=== PATIENT | female | born 1990 | race Caucasian/White ===

== ENCOUNTER 2017-01-06 17:05 | Emergency (ER) | payer BC, OTHER ==
[~2017-01-06 17:05] MED LIST: NORE1TAB26 PO; PREN1CAP4 PO
--- NOTE | 2017-01-06 18:16 | PD ---
HPI Chief Complaint pelvic pain Date Seen: Jan 06, 2017 Travel History International Travel<30 Days: No Contact w/Intl Traveler<30Days: No History of Present Illness HPI 26 yo @ 16w2d. care with Dr. Oconnell, uncomplicated . Patient c/o sharp pains on the sides of the uterus that is worse with standing and walking. She took Tylenol earlier today. She denies abdominal pain. She has a hx of IBS with some loose stools yesterday and constipation today. Denies urinary symptoms. No VB, discharge, LOF. History Past Medical History Narrative Medical Migraines Obstetric History Obstetric History G1 Past Surgical History Surgical History: No Previous Surgery Family History Family History: Negative Social History Alcohol Use: No Tobacco Use: No Substance Abuse: No Allergies-Medications (Allergen,Severity, Reaction): Coded Allergies: Penicillin (Verified Allergy, Unknown, 05/05/16) Home Meds Active Scripts Norethindrone-Ethinyl Estradiol-Fe (Lomedia 24 Fe 07/15)1-20 Mg-Mcg Tab1 Tab PO DAILY #1 PACK Ref 11 Prov:Alma Rosa Wolfe [facility] 06/01/16 Without A W/ Fe Fumar (Prenate Enhance 28-0.6-0.4-400 mg)1 Cap Cap1 Cap PO DAILY #60 BOTTLE Ref 4 Prov:Althea Cardoso CNM [facility] 05/05/16 Review of Systems General / Constitutional: No: Fever, Chills HENT: No: Headaches (none currently), Lightheadedness Cardiovascular: No: Chest Pain or Discomfort, Palpitations Respiratory: No: Cough, Short of Breath Gastrointestinal: Constipation, No: Nausea, Vomiting, Diarrhea, Abdominal Pain (per hpi) Genitourinary: Pelvic Pain (per hpi), No: Urgency, Frequency, Dysuria, Discharge, Vaginal Bleeding Musculoskeletal: No: Weakness, Cramping, Edema Skin: No Rash, No Itching, No Lesions Neurologic: No: Focal Abnormalities, Coordination Problem Physical Exam Narrative GENERAL: Well-nourished, well-developed patient. NAD SKIN: Warm and dry. HEAD: Normocephalic and atraumatic. EYES: No scleral icterus. No injection or drainage. ENT: No nasal drainage noted. Mucous membranes pink. Airway patent. NECK: trachea midline. No JVD. CARDIOVASCULAR: Regular rate RESPIRATORY: No accessory muscle use. ABDOMEN/GI: Abdomen soft, non-tender, no rebound, no guarding Gravid NT pain reproduced with moving uterus c/w round ligament pain FHT's: 160s EXTREMITIES: No cyanosis or edema. BACK: Nontender without obvious deformity. NEUROLOGICAL: Awake and alert. Motor and sensory grossly within normal limits. Normal speech. Normal gait. Data Data Vital Signs Reviewed: Yes Orders Vital Signs (Adult) .ON ADMISSION (01/06/17 17:29) ^ Labor Status (01/06/17 17:29) Urinalysis - C+S If Indicated (01/06/17 17:29) ^ Hydration (01/06/17 17:29) Labs UA dip: NEG MDM Narrative Course / MDM 16 weeks round ligament pain +FHR hx IBS with alternating loose stools and constipation ua neg Plan D/c home interventions for round ligament pain reviewed info on support belt given tylenol prn Diagnosis Diagnosis: Primary Impression: Pain of round ligament affecting , antepartum Additional Impression: 16 weeks gestation of Disposition: DISCHARGE HOME Condition: Good Ranjana Hines MD Jan 06, 2017 18:16
== END 2017-01-06 18:18 | disposition home or self-care (01) ==
LOC: HOBED 17:05
DX: O26.892 Other specified pregnancy related conditions, second trimester (principal); K58.9 Irritable bowel syndrome, unspecified; Z3A.16 16 weeks gestation of pregnancy; Z88.0 Allergy status to penicillin
CPT/HCPCS: 99282

== ENCOUNTER 2017-07-04 20:17 | Inpatient (IN) | payer OTHER ==
[~2017-07-04] VITALS: Ht 160 cm; Wt 69.9 kg
[2017-07-04] VITALS (21 sets, daily range): PULSE 71–103
[2017-07-04] MEDS: LACTATED RINGER'S 1000 ML IV SCH (21:00)
--- NOTE | 2017-07-04 21:54 | HHI.HP ---
HPI Chief Complaint post dates Date Seen: Jul 04, 2017 Time Seen: 21:49 Travel History International Travel<30 Days: No Contact w/Intl Traveler<30Days: No Known Affected Area: No History of Present Illness HPI 26 yo mwf G0 at 41 and 6/7 weeks by early dating admitted for cervidil and arom in the am. She strongly desires to avoid pitocin and epidural. She has been frightened of labor and desires to do as much naturally as possible. PNC with HOGA and no issues throughout. GFM. No N, V, GERMAIN or blurred vision. GFM and some contractions. No leaking or bleeding. Weeks Gestation: 42 Para: 0 : 1 Last Menstrual Period: Jul 04, 2017 History Past Medical History Medical History: Denies Significant Hx Past Surgical History Surgical History: No Previous Surgery Family History Family History: Negative Social History Alcohol Use: No Tobacco Use: No Substance Abuse: No Allergies-Medications (Allergen,Severity, Reaction): Coded Allergies: penicillin G (Verified Allergy, Severe, Nausea/Vomiting, 07/04/17) Home Meds Active Scripts Without A W/ Fe Fumar (Prenate Enhance 28-0.6-0.4-400 mg) 1 Cap Cap, 1 CAP PO DAILY, #60 BOTTLE 4 Refills Prov:Althea Cardoso 05/05/16 Discontinued Scripts Norethindrone-Ethinyl Estradiol-Fe (Lomedia 24 Fe 07/15) 1-20 Mg-Mcg Tab, 1 TAB PO DAILY for Control, #1 PACK 11 Refills Prov:Alma Rosa WolfeP 06/01/16 Physical Exam Narrative GENERAL: Well-nourished, well-developed patient. SKIN: Warm and dry. HEAD: Normocephalic and atraumatic. EYES: No scleral icterus. No injection or drainage. ENT: No nasal drainage noted. Mucous membranes pink. Airway patent. NECK: Supple, trachea midline. No JVD. CARDIOVASCULAR: Regular rate and rhythm without murmurs, gallops, or rubs. RESPIRATORY: Breath sounds equal bilaterally. No accessory muscle use. BREASTS: Bilateral exam showed no masses , no retractions, no nipple discharge. ABDOMEN/GI: Abdomen soft, non-tender, bowel sounds present, no rebound, no guarding 41 cm Vertex EFW 7 and 1/2 pelvis unproven but clinically adequate BPP in office 01/31 2 cm /50% /very posterior and deviated to the left strip reactive with no decels EXTREMITIES: No cyanosis or edema. BACK: Nontender without obvious deformity. No CVA tenderness. NEUROLOGICAL: Awake and alert. Motor and sensory grossly within normal limits. Five out of 5 muscle strength in all muscle groups. Normal speech. Caprini VTE Risk Assessment Caprini VTE Risk Assessment: No/Low Risk (score <= 1) Caprini Risk Assessment Model Point Value = 1 Point Value = 2 Point Value = 3 Point Value = 5 Age 41-60 Minor surgery BMI > 25 kg/m2 Swollen legs Varicose veins or History of unexplained or recurrent spontaneous Oral contraceptives or hormone replacement Sepsis (< 1 month) Serious lung disease, including pneumonia (< 1 month) Abnormal pulmonary function Acute myocardial infarction Congestive heart failure (< 1 month) History of inflammatory bowel disease Medical patient at bed rest Age 61-74 Arthroscopic surgery Major open surgery (> 45 min) Laparoscopic surgery (> 45 min) Malignancy Confined to bed (> 72 hours) Immobilizing plaster cast Central venous access Age >= 75 History of VTE Family history of VTE Factor V Leiden Prothrombin [id number] Lupus anticoagulant Anticardiolipin antibodies Elevated serum homocysteine Heparin-induced thrombocytopenia Other congenital or acquired thrombophilia Stroke (< 1 month) Elective arthroplasty Hip, pelvis, or leg fracture Acute spinal cord injury (< 1 month) Prophylaxis Regimen Total Risk Factor Score Risk Level Prophylaxis Regimen 0-1 Low Early ambulation 2 Moderate Order ONE of the following: *Sequential Compression Device (SCD) *Heparin 5000 units SQ BID 3-4 Higher Order ONE of the following medications: *Heparin 5000 units SQ TID *Enoxaparin/Lovenox 40 mg SQ daily (WT < 150 kg, CrCl > 30 mL/min) *Enoxaparin/Lovenox 30 mg SQ daily (WT < 150 kg, CrCl > 10-29 mL/min) *Enoxaparin/Lovenox 30 mg SQ BID (WT < 150 kg, CrCl > 30 mL/min) AND/OR *Sequential Compression Device (SCD) 5 or more Highest Order ONE of the following medications: *Heparin 5000 units SQ TID (Preferred with Epidurals) *Enoxaparin/Lovenox 40 mg SQ daily (WT < 150 kg, CrCl > 30 mL/min) *Enoxaparin/Lovenox 30 mg SQ daily (WT < 150 kg, CrCl > 10-29 mL/min) *Enoxaparin/Lovenox 30 mg SQ BID (WT < 150 kg, CrCl > 30 mL/min) AND *Sequential Compression Device (SCD) Data Data Orders Orders Admit To Inpatient (07/04/17 ) Diet Regular Basic (07/05/17 Breakfast) Activity Oob Ad Leydi (07/04/17 21:47) ^ Labor Induction (07/04/17 21:47) ^ Saline Lock (07/04/17 21:47) ^ Vaginal Insert (07/04/17 21:47) ^ Vaginal Lavage (07/04/17 21:47) Heart (07/04/17 21:47) Sodium Chloride 0.9% Flush (Ns Flush) (07/05/17 09:00) Sodium Chloride 0.9% Flush (Ns Flush) (07/04/17 22:00) Dinoprostone Vag Insert (Cervidil Vag In (07/04/17 22:00) Inpatient Certification (07/04/17 ) Assessment/Plan Assessment and Plan 42 weeks with reasonable barrios score and reassuring testing cervidil tonight and arom in the morning anticipate Umm Fraga MD Jul 04, 2017 21:54
[2017-07-04] MEDS ORDERED: DINOPROSTONE 10 MG VAG INSERT VAGINAL ONE (22:00)
[2017-07-04] MEDS ORDERED: SODIUM CHLORIDE 0.9% FLUSH 10 ML FLUSH IV FLUSH PRN (22:00)
[2017-07-04 22:29] LABS: AUTOMATED NEUTROPHIL # 9.1 TH/MM3 (1.8-7.7); BASOPHIL % 0.3 % (0.0-2.0); EOSINOPHIL % 0.3 % (0.0-4.0); HEMATOCRIT 34.5 % (35.0-46.0); HEMOGLOBIN 12.3 GM/DL (11.6-15.3); LYMPH % 16.5 % (9.0-44.0); LYMPHOCYTE # 1.9 TH/MM3 (1.0-4.8); MEAN CELL VOLUME 94.6 FL (80.0-100.0); MEAN CORPUSCULAR HEMOGLOBIN 33.8 PG (27.0-34.0); MEAN CORPUSCULAR HGB CONC 35.7 % (32.0-36.0); MEAN PLATELET VOLUME 7.6 FL (7.0-11.0); MONO % 5.9 % (0.0-8.0); MONOCYTE # 0.7 TH/MM3 (0-0.9); PLATELET COUNT 300 TH/MM3 (150-450); RED BLOOD COUNT 3.65 MIL/MM3 (4.00-5.30); RED CELL DISTRIBUTION WIDTH 14.5 % (11.6-17.2); WHITE BLOOD COUNT 11.8 TH/MM3 (4.0-11.0)
[2017-07-04] MEDS ORDERED: LIDOCAINE HCL 1% 50 ML VIAL INFIL PRN (22:30)
[2017-07-04] MEDS ORDERED: ONDANSETRON HCL 4 MG/2 ML VIAL IV PUSH PRN (22:30)
[2017-07-04] MEDS ORDERED: OXYTOCIN 30 UNITS 500ML PREMIX IV ONE (22:30)
[2017-07-04] MEDS ORDERED: NS 1000 ML IV PRN (22:30)
[2017-07-04] MEDS ORDERED: MINERAL OIL 10 ML VIAL TOPICAL PRN (22:30)
[2017-07-04] MEDS ORDERED: LIDOCAINE HCL 1% 50 ML VIAL I-DERMAL PRN (22:30)
[2017-07-04] MEDS ORDERED: LACTATED RINGER'S 1000 ML BOLUS IV PRN (22:30)
[2017-07-04] MEDS ORDERED: CITRIC ACID-SODIUM CITRATE LIQ 30 ML UDC PO SCH (22:30)
[2017-07-04] MEDS ORDERED: NS 500 ML BOLUS IV PRN (22:30)
[2017-07-04 22:32] LABS: BILIRUBIN, URINE NEG (NEG); BLOOD, URINE SMALL (NEG); GLUCOSE,URINE NEG (NEG); KETONE, URINE 10 mg/dL (NEG); NITRITE,URINE NEG (NEG); SQUAMOUS EPITHELIAL CELL URINE 1 /hpf (0-5); URINE COLOR LIGHT-YELLOW (YELLW/STRAW); URINE LEUKOCYTE ESTERASE NEG (NEG)
[2017-07-04] MEDS ORDERED: ACETAMINOPHEN 325 MG TAB PO PRN (23:30)
[2017-07-05] VITALS (110 sets, daily range): BP systolic 110–140; BP diastolic 66–77; PULSE 65–119; RESP 16–18; TEMP 97.8–98.6
[2017-07-05] MEDS: LACTATED RINGER'S 1000 ML IV SCH (05:42)
[2017-07-05] MEDS ORDERED: SODIUM CHLORIDE 0.9% FLUSH 10 ML FLUSH IV FLUSH SCH ×2 (09:00→21:00)
[2017-07-05] MEDS ORDERED: OXYTOCIN 30 UNITS-500ML PREMIX 500 ML ONE (14:31)
[2017-07-05] MEDS ORDERED: LIDOCAINE HCL 1% 20 ML VIAL ONE (14:32)
[2017-07-05] MEDS ORDERED: MEASLES, MUMPS, RUBELLA VACCINE 0.5 ML VIAL SQ ONE (16:00)
[2017-07-05] MEDS ORDERED: DIPHTH/TETANUS/ACEL PERTUSSIS (BOOSTER) 0.5 ML VIAL/PFS IM ONE (16:00)
[2017-07-05] MEDS ORDERED: DOCUSATE SODIUM 50 MG/SENNA 8.6 MG TAB PO PRN (16:30)
[2017-07-05] MEDS ORDERED: OXYTOCIN 30 UNITS-500ML PREMIX 500 ML IV SCH (16:30)
[2017-07-05] MEDS ORDERED: SODIUM CHLORIDE 0.9% FLUSH 10 ML FLUSH IV FLUSH PRN (16:30)
[2017-07-05] MEDS ORDERED: ALUMINUM/MAGNESIUM/SIMETH 30 ML CUP PO PRN (16:30)
[2017-07-05] MEDS ORDERED: BENZOCAINE 20% TOPICAL SPRAY 60 ML CAN TOPICAL PRN (16:30)
[2017-07-05] MEDS ORDERED: oxyCODONE/ACETAMINOPHEN 5 MG/325 MG TAB PO PRN (16:30)
[2017-07-05] MEDS ORDERED: ZOLPIDEM TARTRATE 5 MG TAB PO PRN (16:30)
[2017-07-05] MEDS ORDERED: ACETAMINOPHEN 325 MG TAB PO PRN (16:30)
[2017-07-05] MEDS ORDERED: WITCH HAZEL 50%/GLYCERIN 12.5% 40 PAD JAR TOPICAL PRN (16:30)
[2017-07-05] MEDS ORDERED: ONDANSETRON ODT 4 MG TAB PO PRN (16:30)
[2017-07-05] MEDS: IBUPROFEN 800 MG TAB PO PRN (16:43)
[2017-07-05] MEDS: oxyCODONE/ACETAMINOPHEN 5 MG/325 MG TAB PO PRN (16:43)
[2017-07-06] MEDS: IBUPROFEN 800 MG TAB PO PRN ×3 (00:47→17:42)
[2017-07-06] MEDS: oxyCODONE/ACETAMINOPHEN 5 MG/325 MG TAB PO PRN ×3 (00:47→17:42)
--- NOTE | 2017-07-06 07:29 | PD.OB.DELI ---
Weeks gestation: 42 Gest age assessed date: Jul 05, 2017 Gest age assessed time: 08:00 Pt started active labor?: Yes Active labor start date: Jul 05, 2017 Active labor start time: 08:00 Medical induction start date: Jul 05, 2017 Medical induction start time: 08:00 Artificial rupture of membrane: Yes Artificial ROM date: Jul 05, 2017 Artifical ROM time: 08:00 Anesthesia: Epidural Episiotomy: None Vaginal Delivery: Normal, Vacuum Presentation: Occiput anterior Nuchal Cord: x1 Delayed cord clamping (45 sec): Yes Infant: Female Delivery date: Jul 05, 2017 Delivery time: 16:00 One Minute : 9 Five Minute : 9 Weight: 3670 Placenta: Spontaneous delivery Laceration: 2 deg Repair: Chromic running Estimated blood loss: average 300 Umm Everett MD Jul 06, 2017 07:29
--- NOTE | 2017-07-06 07:31 | HHI.DCPOC ---
Discharge Care Plan Report Symptoms to Your Doctor -Temperature above 100.5 degrees -Redness, of incision or excessive or foul smelling drainage -Unusual pain or calf pain -Increased vaginal bleeding -Painful or difficulty urinating -Feelings of extreme sadness or anxiety after 2 weeks Goals to Promote Your Health * To prevent worsening of your condition and complications * To maintain your health at the optimal level Directions to Meet Your Goals Take your medications as prescribed Follow your dietary instruction Follow activity as directed Ensure plenty of rest for recovery Drink fluids for hydration Keep your appointments as scheduled Take your immunizations and boosters as scheduled If your symptoms worsen call your PCP, if no PCP go to Urgent Care Center or Emergency Room Smoking is Dangerous to Your Health. Avoid second hand smoke Call the 24-hour crisis hotline for domestic abuse at Umm Everett MD Jul 06, 2017 07:31
[2017-07-06 08:05] VITALS: BP 114/60; PULSE 77; RESP 16; TEMP 98
--- NOTE | 2017-07-06 08:21 | HHI.OB ---
Subjective Post Day: 1 Remarks doing well, VB decreasing, small clots but = cycles. no pain, no dizziness, voiding, Objective Vitals/I&O Vital Signs Date Time Temp Pulse Resp B/P (MAP) Pulse Ox O2 Delivery O2 Flow Rate FiO2 07/05/17 19:05 98.6 103 18 110/73 (85) 07/05/17 16:45 109 16 140/77 (98) 07/05/17 16:38 16 07/05/17 16:30 102 125/77 (93) 07/05/17 16:19 16 07/05/17 16:15 98 128/66 (86) 07/05/17 16:04 103 132/68 (89) 07/05/17 16:03 18 07/05/17 14:37 97.8 18 07/05/17 12:22 97.8 07/05/17 10:30 16 07/05/17 10:25 73 07/05/17 10:20 86 07/05/17 10:15 74 07/05/17 10:10 76 07/05/17 10:05 72 07/05/17 10:00 81 07/05/17 09:50 71 07/05/17 09:45 75 07/05/17 09:40 70 07/05/17 09:35 79 07/05/17 09:30 73 16 07/05/17 09:25 81 07/05/17 09:15 84 07/05/17 09:05 93 07/05/17 09:00 86 07/05/17 08:57 98.2 07/05/17 08:55 88 07/05/17 08:55 88 110/73 (85) 07/05/17 08:50 105 07/05/17 08:40 78 07/05/17 08:35 82 07/05/17 08:30 119 Objective Remarks GENERAL: Well-nourished, well-developed patient. CARDIOVASCULAR: Regular rate and rhythm without murmurs, gallops, or rubs. RESPIRATORY: Breath sounds equal bilaterally. No accessory muscle use. ABDOMEN/GI: Abdomen soft, non-tender. Fundus: Firm, non-tender at umbilicus. GENITOURINARY: Light to moderate bleeding. EXTREMITIES: No cyanosis or edema, non-tender, without signs of DVT. Medications and IVs Current Medications Medications (Trade) Dose Ordered Sig/Artur Route Start Time Stop Time Status Last Admin (NS Flush) 2 ml BID IV FLUSH 07/05/17 21:00 (NS Flush) 2 ml UNSCH PRN IV FLUSH 07/05/17 16:30 (Tylenol) 650 mg Q4H PRN PO 07/05/17 16:30 (Motrin) 800 mg Q8H PRN PO 07/05/17 16:30 07/06/17 00:47 (Percocet 5-325 Mg) 1 tab Q4H PRN PO 07/05/17 16:30 07/06/17 00:47 (Percocet 5-325 Mg) 2 tab Q4H PRN PO 07/05/17 16:30 (Americaine 20% Top Spr) 1 spray Q4H PRN TOPICAL 07/05/17 16:30 (Tucks Pads) 1 applic QID PRN TOPICAL 07/05/17 16:30 (Shilpa-Colace) 2 tab Q12H PRN PO 07/05/17 16:30 (Ambien) 5 mg HS PRN PO 07/05/17 16:30 (Mag-Al Plus Susp Liq) 15 ml Q8H PRN PO 07/05/17 16:30 (Zofran Odt) 4 mg Q6H PRN PO 07/05/17 16:30 Assessment/Plan Assessment and Plan 26 yo s/p Vacuum at 42 w 1. PPD #1: doing well, anticipate d/c home either later today or tomorrow, discussed expectations and precautions. 2. Asthma: controlled w/o meds. Terrence Mendoza MD Jul 06, 2017 08:21
== END 2017-07-06 17:43 | disposition home or self-care (01) | DRG 775 ==
LOC: H2EB 20:17 → H1EA 07-05 17:53
PROVIDERS: ADMIT Obstetrics & Gynecology; ATTEND Obstetrics & Gynecology
PROC: 3E0P7VZ Introduction of Hormone into Female Reproductive, Via Natural or Artificial Opening (ICD-10-PCS; 2017-07-04)
PROC: 10907ZC Drainage of Amniotic Fluid, Therapeutic from Products of Conception, Via Natural or Artificial Opening (ICD-10-PCS; 2017-07-05)
PROC: 10D07Z6 Extraction of Products of Conception, Vacuum, Via Natural or Artificial Opening (ICD-10-PCS; principal; 2017-07-06)
PROC: 0KQM0ZZ Repair Perineum Muscle, Open Approach (ICD-10-PCS; 2017-07-06)
DX: O48.0 Post-term pregnancy (principal); J45.909 Unspecified asthma, uncomplicated; O99.52 Diseases of the respiratory system complicating childbirth; O70.1 Second degree perineal laceration during delivery; O69.81X0 Labor and delivery complicated by cord around neck, without compression, not applicable or unspecified; Z37.0 Single live birth; Z3A.41 41 weeks gestation of pregnancy
CPT/HCPCS: 59025; 80307; 81001; 85025; 86900; 86901; J2590; J7120